=== PATIENT | female | born 1980 | race Caucasian/White ===

== ENCOUNTER → 2024-08-21 14:28 | Outpatient (REF) | payer BC, SELFPAY | LOC: HWWDC 14:28 | PROVIDERS: ATTENDING PHYSICIAN Family Medicine | DX: Z12.39 Encounter for other screening for malignant neoplasm of breast (principal) | CPT/HCPCS: 77063; 77067 ==

== ENCOUNTER → 2024-09-06 09:13 | Outpatient (REF) | payer BC, SELFPAY | LOC: WDC 09:13 | PROVIDERS: ATTENDING PHYSICIAN Family Medicine | DX: R92.8 Other abnormal and inconclusive findings on diagnostic imaging of breast (principal) | CPT/HCPCS: 77065 ==

== ENCOUNTER → 2024-09-13 06:27 | Outpatient (REF) | payer BC, SELFPAY ==
--- NOTE | 2024-09-13 12:10 | OID.BR.INTR ---
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
- -
Did not meet patient at time of biopsy. Will follow up per protocol.
== END ==
LOC: WDC 06:27
PROVIDERS: ATTENDING PHYSICIAN Family Medicine
DX: R92.1 Mammographic calcification found on diagnostic imaging of breast (principal)
CPT/HCPCS: 88305; 19081; 76098; A4648